=== PATIENT | male | born 1965 | race Caucasian/White ===

== ENCOUNTER → 2020-05-06 11:28 | Outpatient (CLI) | payer BC, SELFPAY ==
--- NOTE | ~2020-05-06 | CT_ITS ---
EXAMINATION: CT soft tissue neck w con DATE: 05/06/2020 11:55 INDICATION: Neck mass. Sore throat. TECHNIQUE: Computed tomography (CT) of the neck was performed with 75 mL Omnipaque-350 intravenous co ntrast. Automated exposure control and iterative reconstruction technique were employed. The dose-everett gth product was 353.27 mGy-cm. COMPARISON: None FINDINGS: There is mild scarring at the lung apices. There is mild mucosal thickening in the maxillar y sinuses. The palatine tonsils and epiglottis are normal. There are no pathologically enlarged lymph nodes. There is moderate cervical spondylosis. IMPRESSION: 1. No abnormal mass or lymphadenopathy. Reviewed, dictated and finalized at location A. [employer]
== END ==
DX: R22.1 Localized swelling, mass and lump, neck (principal)
CPT/HCPCS: 70491; Q9967